=== PATIENT | male | born 1995 | race Caucasian/White ===

== ENCOUNTER 2021-11-17 16:57 | Emergency (ER) | payer OTHER ==
[2021-11-17 17:13] VITALS: BP 128/78; PULSE 78; TEMP 98.3; BMI 24.4
[2021-11-17] MEDS ORDERED: DOXYCYCLINE HYCLATE 100 MG CAPSULE PO ONE ×2 (17:44→17:55)
[2021-11-17] MEDS ORDERED: cefTRIAXone SODIUM 1 GM VIAL ONE (17:56)
[2021-11-17] MEDS ORDERED: LIDOCAINE HCL 1%, 10 MG/ML (20ML VIAL) ONE (17:56)
[2021-11-17 19:13] LABS: SYPHILIS W/ RPR CONF NON-REACTIVE (NONREACTIVE)
[2021-11-17 19:42] LABS: HIV INTERPRETATION NEGATIVE (NEGATIVE)
== END 2021-11-17 18:11 | disposition home or self-care (01) ==
LOC: FER 16:57
DX: N34.1 Nonspecific urethritis (principal)
CPT/HCPCS: 36415; 81003; 86780; 87086; 87389; 87491; 87591; 99284-25